=== PATIENT | female | born 1940 | race Caucasian/White ===

== ENCOUNTER → 2016-11-19 | Outpatient (CLI) | payer MEDICARE ==
[2016-11-19 14:48] LABS: Blood Urea Nitrogen 17 mg/dL (7-17); Non-African American GFR(MDRD) >60 (>60 ml/min/1.73 sqM)
--- NOTE | 2016-11-20 10:52 | CT ---
EXAMINATION TYPE: CT urogram wo/w con DATE OF EXAM: 11/19/2016 3:39 PM HISTORY: Microscopic hematuria per order. CT DLP: 2064.1mGycm Automated Exposure Control for Dose Reduction was Utilized. CONTRAST: CT scan of the abdomen and pelvis is performed without oral and without and with IV Contrast, patient injected with 100 mL of Omnipaque 300. Urogram protocol with Three-D reconstructed images created on a independent workstation and reviewed. COMPARISON: None. FINDINGS: KUB: Noncontrast images show 2 mm punctate calculus or calcification posteriorly mid pole level left kidney on axial image 27 series 6. Postcontrast images show symmetric cortical medullary uptake and excretion from both kidneys. There a re few subcentimeter low dense lesions scattered throughout both kidneys that are too small to furthe r characterize but presumed benign. No hydronephrosis is evident bilaterally. Visualized portion of b oth ureters shows no suspicious calculus or filling defect. Ureters are contrast opacified to the cassandra dder. Urinary bladder is satisfactorily distended midline of pelvis without abnormal intraluminal mas s or wall thickening. LUNG BASES: Linear scarring or atelectasis medially in left lung base is present. LIVER/GB: Gallbladder is not visualized and presumed surgically absent. PANCREAS: No significant abnormality is seen. SPLEEN: No significant abnormality is seen. ADRENALS: Slight thickening to left adrenal gland is nonspecific favor benign hyperplasia. BOWEL: Evaluation bowel is suboptimal secondary to lack of enteric contrast. No suspicious small or l arge bowel dilatation is seen. Scattered diverticula are present throughout the colon most pronounced at sigmoid colon level. No CT evidence for acute diverticulitis. Cecum is somewhat wandering towards the midline of the lower abdomen. UTERUS/ADNEXA: No gross abnormality seen. LYMPH NODES: No greater than 1cm abdominal or pelvic lymph nodes are appreciated. OSSEOUS STRUCTURES: There is marked disc space narrowing with spurring and sclerosis L4-L5 level. The re is multilevel spurring in the lower thoracic spine. OTHER: There is mild to moderate skin thickening over the anterior abdominal wall seen bilaterally. There is small caliber abdominal aorta with moderate to severe calcified plaque extending into branch vessels IMPRESSION: A 2 mm calcification probable calculus posterior cortex mid pole level left kidney is not ed otherwise no significant finding is seen to account for patient's symptoms.
== END | disposition home or self-care (01) ==
LOC: RADCTMAIN 13:58
PROVIDERS: ATTEND Urology
DX: N28.89 Other specified disorders of kidney and ureter (principal); R31.9 Hematuria, unspecified; Z88.5 Allergy status to narcotic agent; Z88.0 Allergy status to penicillin; Z88.1 Allergy status to other antibiotic agents
CPT/HCPCS: 82565; 84520; 74178; 36415; 74400; Q9967